=== PATIENT | male | born 1960 | race Hispanic/Latino ===

== ENCOUNTER 2017-05-04 17:22 | Outpatient (CLI) | payer OTHER, SELFPAY ==
--- NOTE | 2017-05-04 18:55 | RAD ---
CHEST TWO VIEWS: History: TB exposure. FINDINGS: Cardiac silhouette and pulmonary vasculature are upper limits of normal. Mediastinum is midline. Ther e is no confluent airspace consolidation, pneumothorax or pleural fluid evident. Metallic anchors ove rlie the right humeral head. IMPRESSION: No active cardiopulmonary abnormalities are demonstrated. No evidence of active TB. POS: [facility]
== END 2017-05-04 17:23 | disposition home or self-care (01) ==
LOC: MADRAD 17:22
PROVIDERS: ATTEND Preventive Medicine Public Health & General Preventive Medicine
DX: A15.0 Tuberculosis of lung (principal)
CPT/HCPCS: 71046